=== PATIENT | male | born 1955 | race Hispanic/Latino ===

== ENCOUNTER 2022-05-04 04:44 | Emergency (ER) | payer OTHER ==
[~2022-05-04] VITALS: Ht 177.8 cm; Wt 117.9 kg
[2022-05-04] MEDS ORDERED: ASPIRIN 325MG TAB PO ONE (06:00)
[2022-05-04] MEDS ORDERED: ONDANSETRON 4MG INJ IVP ONE (06:00)
[2022-05-04] MEDS ORDERED: 0.9%NACL 1000ML 1,000 ML IV ONE (06:00)
[2022-05-04] MEDS ORDERED: KETOROLAC 30MG VIAL (30MG/ML) IV ONE (06:00)
[2022-05-04] MEDS ORDERED: NITROGLYCERIN 0.4 MG SL TAB SL PRN (06:00)
[2022-05-04 06:10] LABS: BASOPHILS % (AUTO) 0.5 % (0.0-5.0); EOSINOPHILS % (AUTO) 2.5 % (0.0-8.0); HEMATOCRIT 37.1 % (42-54); LYMPHOCYTES % (AUTO) 30.4 % (21.0-51.0); MEAN CORPUSCULAR HEMOGLOBIN 28.7 pg (27.0-33.0); MEAN CORPUSCULAR HGB CONC 31.8 g/dL (32.0-36.0); MEAN CORPUSCULAR VOLUME 90.3 fL (79-99); MONOCYTES % (AUTO) 9.5 % (3.0-13.0); NEUTROPHILS % (AUTO) 56.9 % (40.0-77.0); PLATELET COUNT (AUTO) 195 K/uL (130-400); RED BLOOD CELL COUNT(AUTO) 4.11 MIL/uL (4.50-6.20); RED CELL DISTRIBUTION WIDTH 13.2 % (11.0-15.5); WHITE BLOOD COUNT (AUTO) 6.5 K/uL (4.8-10.8)
[2022-05-04 06:11] LABS: APPEARANCE,URINE CLEAR (CLEAR); BILIRUBIN,URINE NEGATIVE (NEGATIVE); COLOR,URINE LIGHT-YELLOW (YELLOW); GLUCOSE, URINE (UA) 500 mg/dL (NEGATIVE); KETONES,URINE NEGATIVE (NEGATIVE); LEUKOCYTE ESTERASE ,URINE NEGATIVE Leu/uL (NEGATIVE); NITRATE,URINE NEGATIVE (NEGATIVE); OCCULT BLOOD,URINE NEGATIVE (NEGATIVE); PH,URINE 5.5 (5.0-8.0); PROTEIN,URINE NEGATIVE (NEGATIVE); UROBILINOGEN,URINE 0.2 mg/dL (0.2-1.0)
[2022-05-04 06:17] LABS: CALCIUM OXALATE CRYSTALS,UR MANY /LPF (None Seen); MUCUS,URINE RARE LPF (None Seen); SQUAMOUS EPITHELIAL CELL,UR RARE /HPF (0-2)
[2022-05-04 06:27] LABS: ALBUMIN 3.4 g/dL (3.5-5.0); CREATININE 0.8 mg/dL (0.5-1.5); POTASSIUM 3.3 mmol/L (3.5-5.1)
[2022-05-04 06:29] LABS: B-TYPE NATRIURETIC PEPTIDE 7 pg/mL (0-100)
[2022-05-04] MEDS ORDERED: CYCL-309 PO (07:15)
[2022-05-04] MEDS ORDERED: GABA300C PO (07:15)
[2022-05-04] MEDS ORDERED: IBUP-1493 PO (07:15)
[2022-05-04 07:53] VITALS: BP 142/76
== END 2022-05-04 08:00 | disposition home or self-care (01) ==
LOC: EDH 04:44
DX: M54.12 Radiculopathy, cervical region (principal); M62.830 Muscle spasm of back; E11.9 Type 2 diabetes mellitus without complications; E78.00 Pure hypercholesterolemia, unspecified; I10 Essential (primary) hypertension; Z79.1 Long term (current) use of non-steroidal anti-inflammatories (NSAID)
CPT/HCPCS: 99285; 96374; 71045; 96361; 96375; 84484; 80053; 83880; 85025; 85378; 87088; 81001; 36415; 93005; J7030; J2405; J1885